=== PATIENT | male | born 1980 | race Caucasian/White ===

== ENCOUNTER → 2023-08-15 13:10 | Outpatient (REF) | payer OTHER, SELFPAY | LOC: HWRAD 13:10 | PROVIDERS: ATTENDING PHYSICIAN Physician Assistant | DX: R07.89 Other chest pain (principal); M54.50 Low back pain, unspecified; M54.6 Pain in thoracic spine | CPT/HCPCS: 71046; 72072; 72100 ==

== ENCOUNTER 2023-09-29 13:08 | Emergency (ER) | payer OTHER, SELFPAY ==
[2023-09-29 13:11] VITALS: BP 136/85
--- NOTE | 2023-09-29 15:36 | ED.GENMED ---
History of Present Illness
<Jj Brody PA-C - Last Filed: 09/30/23 09:57>
General
Chief Complaint: Prescription Refill
Source: patient
Time Seen by Provider: 09/29/23 14:59
History of Present Illness
History of Present Illness:
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
the streets). Patient states that he was hoping to be prescribed Suboxone in order to manage his addiction. He has no physical complaints at this time.
Past History
<Jj Brody PA-C - Last Filed: 09/30/23 09:57>
Past History
ED Past Medical History: Hypercholesterolemia and Psychiatric (Anxiety, depression, schizophrenia)
ED Past Surgical History: Appendectomy
Social History
Tobacco: Smoker
Alcohol: None
Drug: Marijuana and Other (Opiates)
Personal: Single
Living: alone
Employment: Employed
Family History
Family History: Other (reviewed and noncontributory)
Review of Systems
<Jj Brody PA-C - Last Filed: 09/30/23 09:57>
Review of Systems
All Other Systems: ROS reviewed and negative except as documented in HPI and ROS
Phy Exam
<Jj Brody PA-C - Last Filed: 09/30/23 09:57>
Physical Exam
Physical Exam:
GENERAL: Alert , in no apparent distress
EYE: conjunctiva clear
Head: Normocephalic atraumatic
NECK: Supple,
ENT: mmm.
LUNGS: no acute respiratory distress
NEUROLOGICAL: Alert and oriented
SKIN: Warm and dry, skin intact.
MUSCULOSKELETAL: well perfused.
PSYCH: Normal and appropriate interaction.
Scores
<Jj Brody PA-C - Last Filed: 09/30/23 09:57>
Heart Failure Risk
Heart Failure Risk Score: Not Applicable
Heart Score for Chest Pain Patients
STEMI patient?: Not applicable
Withdrawal Assessment of Alcohol
Withdrawal Assessment Completed?: Not applicable
Course
<Jj Brody PA-C - Last Filed: 09/30/23 09:57>
Vital Signs
Initial and Last Documented VS:
Initial Vital Signs
Temp Pulse Resp BP Pulse Ox
98.3 F 89 20 136/85 98
09/29/23 13:11 09/29/23 13:11 09/29/23 13:11 09/29/23 13:11 09/29/23 13:11
Last Documented Vital Signs
Temp Pulse Resp BP Pulse Ox
98.3 F 89 20 136/85 98
09/29/23 13:11 09/29/23 13:11 09/29/23 13:11 09/29/23 13:11 09/29/23 13:11
<Mika Gustafson PA-C - Last Filed: 09/29/23 18:12>
Vital Signs
Initial and Last Documented VS:
Initial Vital Signs
Temp Pulse Resp BP Pulse Ox
98.3 F 89 20 136/85 98
09/29/23 13:11 09/29/23 13:11 09/29/23 13:11 09/29/23 13:11 09/29/23 13:11
Last Documented Vital Signs
Temp Pulse Resp BP Pulse Ox
98.3 F 89 20 136/85 98
09/29/23 13:11 09/29/23 13:11 09/29/23 13:11 09/29/23 13:11 09/29/23 13:11
<Jj Brody PA-C - Last Filed: 09/30/23 09:57>
MDM/Problems Addressed
MDM/Problems Addressed:
42-year-old male presenting to the emergency department for evaluation due to methadone addiction. Patient has gone to inpatient at a separate facility for substance abuse this past January. He is requesting consultation with [facility]. Call was
placed and a provider from [facility] will come to the to evaluate patient and help with disposition planning
<Jj Brody PA-C - Last Filed: 09/30/23 09:57>
*Pulse Oximetry
Patient hypoxic: no
Data Reviewed
Review of Other/Old Records Reveals: Records
<Mika Gustafson PA-C - Last Filed: 09/29/23 18:12>
*Critical Care Note
Total Time (30-74mins, 75-104mins- exclusive of procedures): Not Applicable
<Mika Gustafson PA-C - Last Filed: 09/29/23 18:12>
Update Note
Update Note:
Assumed care of patient pending evaluation by drug and alcohol abuse specialist. Spoke with the specialist. They agree to start the patient on Subutex. He is going to be following up as an outpatient. A prescription for this was provided. No
indication for inpatient treatment at this time.
ED Attending Note
<Jj Brody PA-C - Last Filed: 09/30/23 09:57>
-
Portions of this chart may have been created with voice recognition software.� Occasional wrong word or��sound alike� substitutions may have occurred due to the inherent limitations of voice recognition software.
Discharge Plan
Departure
Patient Disposition: Home (Routine Discharge)
Date of Disposition: 09/29/23
Time of Disposition: 18:04
Patient with high blood pressure during this ER visit?: No
Discharge Problem:
Substance abuse
Instructions: Buprenorphine
Prescriptions:
New
buprenorphine HCl 8 mg tablet, sublingual
8 mg sublingual BID Qty: 14 0RF
Rx Instructions:
Initially take half a tablet twice a day x 1 day then take 1 full tablet twice a day following
No Action
duloxetine 60 MG capsule,delayed release(DR/EC)
60 mg PO DAILY 0RF
clonazepam 1 MG tablet
1 mg PO BIDPRN PRN (Reason: anxiety)
Patient Comments:
01/28/2023: last filled 12/31/22, 112 tabs for 28 days from [place]
haloperidol decanoate 100 mg/mL solution
100 mg IM Q3W
nicotine (polacrilex) 4 mg gum
4 mg PO Q4HPRN PRN (Reason: smoking )
trihexyphenidyl 2 mg tablet
4 mg PO DAILY
paliperidone 3 mg tablet extended release 24 hr
3 mg PO HS
Abilify Maintena 400 mg suspension,extended rel recon
400 mg IM Q4W
Referrals:
Federica Hendrix MD [Family Provider] -
Activity Restrictions/Additional Instructions:
Use prescribed medicine as directed. Start with 4 mg twice a day, then increase to 8 mg twice a day. Please follow-up as [facility].
Interventions
Interventions:
*General Assessment Last Done: 09/29/23 18:36
*Nursing Disposition Last Done: 09/29/23 18:36
Discharge Date and Time
Discharge Date/Time: 09/29/23 18:36
Print Language: BARBADIAN
== END 2023-09-29 18:36 | disposition home or self-care (01) ==
LOC: EMR 13:08
PROVIDERS: EMERGENCY PHYSICIAN Emergency Medicine; FAMILY PHYSICIAN Student in an Organized Health Care Education/Training Program
DX: F19.10 Other psychoactive substance abuse, uncomplicated (principal); E78.00 Pure hypercholesterolemia, unspecified; F41.8 Other specified anxiety disorders; F20.9 Schizophrenia, unspecified
CPT/HCPCS: 99282

== ENCOUNTER 2023-10-13 20:35 | Emergency (ER) | payer OTHER, SELFPAY ==
[2023-10-13 20:37] VITALS: BP 146/106
--- NOTE | 2023-10-13 22:25 | ED.GENMED ---
History of Present Illness
General
Chief Complaint: Throat Problem
Source: patient
Exam Limitations: none
Time Seen by Provider: 10/13/23 22:25
Nursing documentation reviewed up to this point in time: agreed with
History of Present Illness
History of Present Illness:
43-year-old male presents with the sensation that 'his Nic's apple is sinking '. He states that over the last 24 hours he noticed that his Nic's apple is lower in his throat. Denies any difficulty breathing or swallowing. Reports no pain.
Patient has a full villa, and the cartilage of his larynx is not readily visible
Past History
Past History
ED Past Medical History: Hypercholesterolemia and Psychiatric (Anxiety, depression, schizophrenia)
ED Past Surgical History: Appendectomy
Social History
Tobacco: Smoker
Alcohol: None
Drug: Marijuana and Other (Opiates)
Personal: Single
Living: alone
Employment: Employed
Family History
Family History: Other (reviewed and noncontributory)
Review of Systems
Review of Systems
Allergies reviewed?: Yes
All Other Systems: Not applicable
Constitutional: Reports no symptoms
EENT: Reports no symptoms
Respiratory: Reports no symptoms
Cardiac: Reports no symptoms
ABD/GI: Reports no symptoms
: Reports no symptoms
Musculoskeletal: Reports no symptoms
Skin: Reports no symptoms
Neurological: Reports no symptoms
Endocrine: Reports no symptoms
Hematologic/Lymphatic: Reports no symptoms
Psychiatric: Reports no symptoms
Phy Exam
General Physical Exam
General Presentation: well appearing and no apparent distress
General Skin: warm and dry
General Habitus: normal
General Mental: alert
General Hydration: appears well hydrated
ENT Exam
ENT Exam: EOMI, pharynx normal, neck supple and normocephalic
Eye Exam
Eye Exam: PERRL, cornea clear and conjunctiva normal
Cardiovascular Exam
Cardiovascular Exam: regular rate/rhythm, no edema, no murmur and normal peripheral pulses
Pulmonary Exam
Pulmonary Exam: lungs clear, no respiratory distress, no rales, no crackles, no rhonchi, no stridor, no wheezing and no cough
Gastrointestinal Exam
Gastrointestinal Exam: normal bowel sounds, non tender, soft, no organomegaly, no pulsatile mass and non distended
Neurological Exam
Neurological Exam: alert, oriented x3, no motor deficits and speech normal
Musculoskeletal Exam
Musculoskeletal Exam: full ROM and no edema
Skin Exam
Skin Exam: normal color, warm/dry, no rash and no petechia
Psychiatric Exam
Psychiatric Exam: normal mood/affect
Course
Orders/Labs/Results
Orders:
Orders
10/13/23 22:34
CR Soft Tissue Neck Urgent
Comment:
Reason For Exam: larynx pain
Vital Signs
Initial and Last Documented VS:
Initial Vital Signs
Temp Pulse Resp BP Pulse Ox
98.5 F 112 22 146/106 98
10/13/23 20:37 10/13/23 20:37 10/13/23 20:37 10/13/23 20:37 10/13/23 20:37
Last Documented Vital Signs
Temp Pulse Resp BP Pulse Ox
98.5 F 85 20 139/93 99
10/13/23 20:37 10/14/23 00:09 10/14/23 00:09 10/14/23 00:09 10/14/23 00:09
*Critical Care Note
Total Time (30-74mins, 75-104mins- exclusive of procedures): Not Applicable
ED Attending Note
-
Portions of this chart may have been created with voice recognition software.� Occasional wrong word or��sound alike� substitutions may have occurred due to the inherent limitations of voice recognition software.
Discharge Plan
Departure
Patient Disposition: Home (Routine Discharge)
Date of Disposition: 10/14/23
Time of Disposition: 00:00
Patient with high blood pressure during this ER visit?: No
Condition: Good
Discharge Problem:
Neck pain
Instructions: Neck Pain ED, BLOOD PRESSURE
Prescriptions:
No Action
duloxetine 60 MG capsule,delayed release(DR/EC)
60 mg PO DAILY 0RF
clonazepam 1 MG tablet
1 mg PO BIDPRN PRN (Reason: anxiety)
Patient Comments:
01/28/2023: last filled 12/31/22, 112 tabs for 28 days from [place]
haloperidol decanoate 100 mg/mL solution
100 mg IM Q3W
nicotine (polacrilex) 4 mg gum
4 mg PO Q4HPRN PRN (Reason: smoking )
trihexyphenidyl 2 mg tablet
4 mg PO DAILY
paliperidone 3 mg tablet extended release 24 hr
3 mg PO HS
Abilify Maintena 400 mg suspension,extended rel recon
400 mg IM Q4W
buprenorphine HCl 8 mg tablet, sublingual
8 mg sublingual BID Qty: 14 0RF
Rx Instructions:
Initially take half a tablet twice a day x 1 day then take 1 full tablet twice a day following
Referrals:
Reena Barrett PA-C [Family Provider] -
Activity Restrictions/Additional Instructions:
It was a pleasure meeting you and taking part in your care. We hope for your continued healing and wellness.
Please read discharge instructions in their entirety. However, they are for general education and may not describe your exact diagnosis at discharge. Information on your ER visit and medical conditions were discussed with you along with appropriate
follow up information...
If indicated, please take your medications as instructed and indicated on discharge paperwork.
Please schedule a follow up appointment as directed. Call to schedule an appointment
Please return to the emergency department with ANY change in, persisting, or worsening of symptoms. If any of your symptoms do not improve, or persist, or become more severe within 6-12 hours, please return to the emergency department for further
care.
Please return to the emergency department if you develop a headache, neck pain/stiffness, fever greater than 100.4F, chest pain, shortness of breath, persistent nausea, vomiting, slurred speech, difficulty walking, numbness/tingling, weakness, signs
of infection or any other symptoms that are worrisome to you.
If you have any questions or concerns please do not hesitate to call the Hospital at
Interventions
Interventions:
*Risk Screen - Suicide Last Done: 10/13/23 20:37
*General Assessment Last Done: 10/14/23 00:09
*Neglect/Abuse Screening Last Done: 10/13/23 20:37
ED- Fall Risk Assessment Last Done: 10/14/23 00:09
*ED COVID-19 Vaccine History Last Done: 10/14/23 00:09
*Nursing Disposition Last Done: 10/14/23 00:09
ED-EENT Assessment Last Done: 10/13/23 21:34
ED- Pulmonary Assessment Last Done: 10/13/23 21:32
Discharge Date and Time
Discharge Date/Time: 10/14/23 00:12
Print Language: SLOVAK
[2023-10-14 00:09] VITALS: BP 139/93
== END 2023-10-14 00:12 | disposition home or self-care (01) ==
LOC: EMR 20:35
PROVIDERS: EMERGENCY PHYSICIAN Student in an Organized Health Care Education/Training Program; FAMILY PHYSICIAN Physician Assistant
DX: M54.2 Cervicalgia (principal); E78.00 Pure hypercholesterolemia, unspecified; F41.8 Other specified anxiety disorders; F20.9 Schizophrenia, unspecified; F17.200 Nicotine dependence, unspecified, uncomplicated
CPT/HCPCS: 99283; 70360

== ENCOUNTER 2023-11-16 17:37 | Emergency (ER) | payer OTHER, SELFPAY ==
[2023-11-16 17:39] VITALS: BP 161/101
[2023-11-16] MEDS: SUBUTEX 8 MG SL (18:59)
--- NOTE | 2023-11-16 22:58 | ED.GENMED ---
History of Present Illness
General
Chief Complaint: Prescription Refill
Source: patient
Exam Limitations: none
Time Seen by Provider: 11/16/23 18:17
Nursing documentation reviewed up to this point in time: agreed with
History of Present Illness
History of Present Illness:
Patient states he took his last Suboxone pill this AM. Does not recall when his next provider appointment is. States he needs his PM dose for today, will call provider in AM. No other complaints.
Past History
Past History
ED Past Medical History: Hypercholesterolemia and Psychiatric (Anxiety, depression, schizophrenia)
ED Past Surgical History: Appendectomy
Social History
Tobacco: Smoker
Alcohol: None
Drug: Marijuana and Other (Opiates)
Personal: Single
Living: alone
Employment: Employed
Family History
Family History: Other (reviewed and noncontributory)
Review of Systems
Review of Systems
Allergies reviewed?: Yes
All Other Systems: ROS reviewed and negative except as documented in HPI and ROS
Constitutional: Reports no symptoms
EENT: Reports no symptoms
Respiratory: Reports no symptoms
Cardiac: Reports no symptoms
ABD/GI: Reports no symptoms
Musculoskeletal: Reports no symptoms
Skin: Reports no symptoms
Neurological: Reports no symptoms
Psychiatric: Reports no symptoms
Phy Exam
General Physical Exam
General Presentation: well appearing and no apparent distress
General age: appears stated age
General Skin: warm and dry
General Habitus: normal
Musculoskeletal Exam
Musculoskeletal Exam: full ROM and neuro vasc intact
Skin Exam
Skin Exam: normal color, warm/dry and no rash
Psychiatric Exam
Psychiatric Exam: normal mood/affect
Course
Orders/Labs/Results
Orders:
Orders
11/16/23 18:34
Buprenorphine [Subutex] 8 mg SL NOW STA
Vital Signs
Initial and Last Documented VS:
Initial Vital Signs
Temp Pulse Resp BP Pulse Ox
98.8 F 104 20 161/101 98
11/16/23 17:39 11/16/23 17:39 11/16/23 17:39 11/16/23 17:39 11/16/23 17:39
Last Documented Vital Signs
Temp Pulse Resp BP Pulse Ox
98.8 F 104 20 161/101 98
11/16/23 17:39 11/16/23 17:39 11/16/23 17:39 11/16/23 17:39 11/16/23 17:39
*Critical Care Note
Total Time (30-74mins, 75-104mins- exclusive of procedures): Not Applicable
Update Note
Update Note:
PM dose given in ED. He is discharged home and will follow up with his prescribing provider in the AM
ED Attending Note
-
Portions of this chart may have been created with voice recognition software.� Occasional wrong word or��sound alike� substitutions may have occurred due to the inherent limitations of voice recognition software.
Discharge Plan
Departure
Patient Disposition: Home (Routine Discharge)
Date of Disposition: 11/16/23
Time of Disposition: 18:35
Patient with high blood pressure during this ER visit?: No
Condition: Good
Covid-19: Not Applicable
Discharge Problem:
Encounter for medication refill
Instructions: Buprenorphine Discharge Instructions
Prescriptions:
No Action
duloxetine 60 MG capsule,delayed release(DR/EC)
60 mg PO DAILY 0RF
clonazepam 1 MG tablet
1 mg PO BIDPRN PRN (Reason: anxiety)
Patient Comments:
01/28/2023: last filled 12/31/22, 112 tabs for 28 days from [place]
haloperidol decanoate 100 mg/mL solution
100 mg IM Q3W
nicotine (polacrilex) 4 mg gum
4 mg PO Q4HPRN PRN (Reason: smoking )
trihexyphenidyl 2 mg tablet
4 mg PO DAILY
paliperidone 3 mg tablet extended release 24 hr
3 mg PO HS
Abilify Maintena 400 mg suspension,extended rel recon
400 mg IM Q4W
buprenorphine HCl 8 mg tablet, sublingual
8 mg sublingual BID Qty: 14 0RF
Rx Instructions:
Initially take half a tablet twice a day x 1 day then take 1 full tablet twice a day following
Referrals:
Federica Hendrix MD [Family Provider] -
Activity Restrictions/Additional Instructions:
Follow up with your Suboxone provider in the AM
Interventions
Interventions:
*Risk Screen - Suicide Last Done: 11/16/23 19:03
*Neglect/Abuse Screening Last Done: 11/16/23 19:03
*Nursing Disposition Last Done: 11/16/23 19:04
Discharge Date and Time
Discharge Date/Time: 11/16/23 19:04
Print Language: UPPER SORBI[place]
== END 2023-11-16 19:04 | disposition home or self-care (01) ==
LOC: EMR 17:37
PROVIDERS: EMERGENCY PHYSICIAN Emergency Medicine; FAMILY PHYSICIAN Student in an Organized Health Care Education/Training Program
DX: Z76.0 Encounter for issue of repeat prescription (principal); E78.00 Pure hypercholesterolemia, unspecified; F20.9 Schizophrenia, unspecified; F32.A Depression, unspecified; F41.9 Anxiety disorder, unspecified; F17.200 Nicotine dependence, unspecified, uncomplicated
CPT/HCPCS: 99281

== ENCOUNTER 2023-11-17 13:47 | Emergency (ER) | payer OTHER, SELFPAY ==
--- NOTE | 2023-11-17 14:17 | ED.GENMED ---
History of Present Illness
General
Chief Complaint: Prescription Refill
Source: patient
Exam Limitations: none
Time Seen by Provider: 11/17/23 14:15
Nursing documentation reviewed up to this point in time: agreed with
History of Present Illness
History of Present Illness:
43 yo male missed his Suboxone appointment 2 days ago, was here yesterday and received 8 mg SL, is here today requesting another dose as he has appointment with his doctor tomorrow.
Past History
Past History
ED Past Medical History: Hypercholesterolemia and Psychiatric (Anxiety, depression, schizophrenia)
ED Past Surgical History: Appendectomy
Social History
Tobacco: Smoker
Alcohol: None
Drug: Marijuana and Other (Opiates)
Personal: Single
Living: alone
Employment: Employed
Family History
Family History: Other (reviewed and noncontributory)
Review of Systems
Review of Systems
Allergies reviewed?: Yes
All Other Systems: ROS reviewed and negative except as documented in HPI and ROS
Constitutional: Denies fever
Respiratory: Denies trouble breathing
Cardiac: Denies chest pain
ABD/GI: Denies abdominal pain, nausea, vomiting or diarrhea
Musculoskeletal: Reports no symptoms
Skin: Reports no symptoms
Neurological: Reports no symptoms
Phy Exam
Physical Exam
Physical Exam:
GENERAL: No acute distress. A&Ox3.
CONSTITUTIONAL: Afebrile.
EYES: clear, conjunctivae normal
ENMT: moist mucus membranes, Pharynx nl
RESPIRATORY: Regular respirations, nonlabored, lungs clear.
CARDIOVASCULAR: Regular rate and rhythm, no murmurs, no rubs.
GI: Soft, nontender
MUSCULOSKELETAL: Moves with ease. Well perfused.
SKIN: Warm, dry, pink
PSYCH: Normal mood and affect. Well kept, interactive and appropriate
NEUROLOGIC: Awake, alert and oriented. No focal neurological deficits
Course
Orders/Labs/Results
Orders:
Orders
11/17/23 14:16
Buprenorphine [Subutex] 8 mg SL NOW ONE
Vital Signs
Initial and Last Documented VS:
Initial Vital Signs
Temp Pulse Resp Pulse Ox
97.8 F 76 18 97
11/17/23 13:49 11/17/23 13:49 11/17/23 13:49 11/17/23 13:49
Last Documented Vital Signs
Temp Pulse Resp BP Pulse Ox
97.8 F 78 18 140/95 97
11/17/23 13:49 11/17/23 14:37 11/17/23 14:37 11/17/23 14:37 11/17/23 13:49
MDM/Problems Addressed
MDM/Problems Addressed:
43 yo male missed his Suboxone appointment 2 days ago, was here yesterday and received 8 mg SL, is here today requesting another dose as he has appointment with his doctor tomorrow.
Dose given.
*Critical Care Note
Total Time (30-74mins, 75-104mins- exclusive of procedures): Not Applicable
ED Attending Note
-
Portions of this chart may have been created with voice recognition software.� Occasional wrong word or��sound alike� substitutions may have occurred due to the inherent limitations of voice recognition software.
Discharge Plan
Departure
Patient Disposition: Home (Routine Discharge)
Date of Disposition: 11/17/23
Time of Disposition: 14:24
Patient with high blood pressure during this ER visit?: No
Condition: Good
Discharge Problem:
Medication administered
Prescriptions:
No Action
duloxetine 60 MG capsule,delayed release(DR/EC)
60 mg PO DAILY 0RF
clonazepam 1 MG tablet
1 mg PO BIDPRN PRN (Reason: anxiety)
Patient Comments:
01/28/2023: last filled 12/31/22, 112 tabs for 28 days from [place]
haloperidol decanoate 100 mg/mL solution
100 mg IM Q3W
nicotine (polacrilex) 4 mg gum
4 mg PO Q4HPRN PRN (Reason: smoking )
trihexyphenidyl 2 mg tablet
4 mg PO DAILY
paliperidone 3 mg tablet extended release 24 hr
3 mg PO HS
Abilify Maintena 400 mg suspension,extended rel recon
400 mg IM Q4W
buprenorphine HCl 8 mg tablet, sublingual
8 mg sublingual BID Qty: 14 0RF
Rx Instructions:
Initially take half a tablet twice a day x 1 day then take 1 full tablet twice a day following
Activity Restrictions/Additional Instructions:
Keep your appointment with your doctor tomorrow
Interventions
Interventions:
*Risk Screen - Suicide Last Done: 11/17/23 13:49
*General Assessment Last Done: 11/17/23 13:49
*Neglect/Abuse Screening Last Done: 11/17/23 13:49
ED- Fall Risk Assessment Last Done: 11/17/23 14:38
*Nursing Disposition Last Done: 11/17/23 14:38
Discharge Date and Time
Discharge Date/Time: 11/17/23 14:39
Print Language: AZERI
[2023-11-17] MEDS: SUBUTEX 8 MG SL (14:23)
[2023-11-17 14:37] VITALS: BP 140/95
== END 2023-11-17 14:39 | disposition home or self-care (01) ==
LOC: EMR 13:47
PROVIDERS: EMERGENCY PHYSICIAN Emergency Medicine; FAMILY PHYSICIAN Physician Assistant
DX: Z76.0 Encounter for issue of repeat prescription (principal); F32.A Depression, unspecified; F41.9 Anxiety disorder, unspecified; F20.9 Schizophrenia, unspecified; E78.00 Pure hypercholesterolemia, unspecified; F31.9 Bipolar disorder, unspecified; F17.200 Nicotine dependence, unspecified, uncomplicated; Z91.51 Personal history of suicidal behavior; Z87.820 Personal history of traumatic brain injury
CPT/HCPCS: 99281

== ENCOUNTER 2024-04-21 17:25 | Emergency (ER) | payer OTHER, SELFPAY ==
[2024-04-21 17:36] VITALS: BP 136/82
[2024-04-21 17:50] VITALS: BMI 28.0
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
[2024-04-21] MEDS: KLONOPIN 1 MG PO (19:31)
[2024-04-21] MEDS: SUBUTEX 8 MG SL (20:07)
[2024-04-22 00:30] VITALS: BP 128/32
[2024-04-22] MEDS: NICODERM TRANSDERMAL 21 MG TRANSDERM (00:35)
[2024-04-22] MEDS: NICORETTE 2 MG PO (00:35)
[2024-04-22 00:46] LABS: % Basophils 0.7 % (0-2); % Eosinophils 2.1 % (0-6); % Immature Granulocytes 1.4 % (0-0.5); % Lymphocytes 28.9 % (20.5-51.1); % Neutrophils 57.9 % (42.2-75.2); Absolute Basophils 0.1 10^3/uL (0-0.2); Absolute Eosinophils 0.2 10^3/uL (0-0.7); Absolute Immature Granulocytes 0.1 10^3/uL (0-0.05); Absolute Monocytes 0.6 10^3/uL (0.1-0.6); Hematocrit 43.8 % (39.0-52.0); Mean Corp Hgb Conc. 34.2 g/dL (33.0-37.0); Mean Corpuscular Hgb 29.5 pg (27.0-31.0); Mean Corpuscular Volume 86.1 fL (80.0-94.0); Mean Platelet Volume 9.8 fL (7.4-10.4); Nucleated Red Blood Cells % 0 % (-); Platelet Count 218 10^3/uL (130-400); Red Blood Cell Count 5.09 10^6/uL (4.70-6.10); Red Cell Dist. Width 12.5 % (11.5-14.5)
[2024-04-22 00:48] LABS: ALT (SGPT) 30 U/L (0-50); AST (SGOT) 20 U/L (17-59); Albumin 4.6 g/dl (3.5-5.0); Alkaline Phosphatase 77 U/L (38-126); Blood Urea Nitrogen 16 mg/dl (9-20); Calcium 9.6 mg/dl (8.4-10.2); Carbon Dioxide 32 mmol/L (22-30); Chloride 101 mmol/L (98-107); Estimated Creatinine Clearance 104 ml/min; Glucose 138 mg/dl (70-99); Potassium 4.6 mmol/L (3.5-5.1); Sodium 141 mmol/L (135-145); Total Bilirubin 0.9 mg/dl (0.2-1.3); eGFR > 60.00
[2024-04-22 00:53] LABS: Amphetamines Negative (Negative); Barbiturates Negative (Negative); Benzodiazepines Positive (Negative); Buprenorphine Positive (Negative); Cocaine Negative (Negative); Marijuana Positive (Negative); Methadone Positive (Negative); Methamphetamines Negative (Negative); Opiates Negative (Negative); Phencyclidine Negative (Negative); Tricyclic Antidepressants Negative (Negative)
[2024-04-22 01:01] LABS: Fentanyl, Urine Negative (Negative)
[2024-04-22 07:02] VITALS: BP 130/90
[2024-04-22] MEDS: KLONOPIN 1 MG PO (09:23)
== END 2024-04-22 11:40 ==
LOC: EMR 17:25
PROVIDERS: Clinical Nurse Specialist Family Health; EMERGENCY PHYSICIAN Emergency Medicine
DX: R45.851 Suicidal ideations (principal); E78.00 Pure hypercholesterolemia, unspecified; F41.9 Anxiety disorder, unspecified; F20.9 Schizophrenia, unspecified; F17.200 Nicotine dependence, unspecified, uncomplicated; Z65.3 Problems related to other legal circumstances; Z90.49 Acquired absence of other specified parts of digestive tract; Z91.148 Patient's other noncompliance with medication regimen for other reason; Z87.820 Personal history of traumatic brain injury
CPT/HCPCS: 99282; 80053; 80306; 80307; 85025

== ENCOUNTER 2024-05-04 19:52 | Emergency (ER) | payer OTHER, SELFPAY ==
[2024-05-04 19:53] VITALS: BP 144/100
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
[2024-05-04 23:55] LABS: % Basophils 0.9 % (0-2); % Eosinophils 1.3 % (0-6); % Immature Granulocytes 0.4 % (0-0.5); % Lymphocytes 25.2 % (20.5-51.1); % Monocytes 7.4 % (1.7-9.3); % Neutrophils 64.8 % (42.2-75.2); Absolute Basophils 0.1 10^3/uL (0-0.2); Absolute Eosinophils 0.1 10^3/uL (0-0.7); Absolute Lymphocytes 2.1 10^3/uL (1.2-3.4); Absolute Monocytes 0.6 10^3/uL (0.1-0.6); Absolute Neutrophils 5.3 10^3/uL (1.4-6.5); Hematocrit 43.3 % (39.0-52.0); Hemoglobin 15.2 g/dL (13.0-18.0); Mean Corp Hgb Conc. 35.1 g/dL (33.0-37.0); Mean Corpuscular Hgb 29.3 pg (27.0-31.0); Mean Corpuscular Volume 83.4 fL (80.0-94.0); Mean Platelet Volume 9.4 fL (7.4-10.4); Nucleated Red Blood Cells % 0 % (-); Platelet Count 282 10^3/uL (130-400); Red Blood Cell Count 5.19 10^6/uL (4.70-6.10); Red Cell Dist. Width 12.4 % (11.5-14.5); White Blood Cell Count 8.2 10^3/uL (4.8-10.8)
[2024-05-05 00:04] LABS: ALT (SGPT) 27 U/L (0-50); AST (SGOT) 24 U/L (17-59); Acetaminophen < 10 ug/ml (10-30); Albumin 4.9 g/dl (3.5-5.0); Alkaline Phosphatase 82 U/L (38-126); Blood Urea Nitrogen 21 mg/dl (9-20); Calcium 9.5 mg/dl (8.4-10.2); Carbon Dioxide 29 mmol/L (22-30); Chloride 100 mmol/L (98-107); Glucose 105 mg/dl (70-99); Potassium 4.4 mmol/L (3.5-5.1); Salicylate < 1.0 mg/dl (2.0-20.0); Sodium 138 mmol/L (135-145); Total Bilirubin 0.8 mg/dl (0.2-1.3); Total Protein 7.4 g/dl (6.3-8.2); eGFR > 60.00
[2024-05-05 00:09] LABS: Alcohol < 10 mg/dl
[2024-05-05] MEDS: NICORETTE 4 MG PO (00:37)
== END 2024-05-05 01:40 ==
LOC: EMR 19:52
PROVIDERS: EMERGENCY PHYSICIAN Emergency Medicine
DX: R45.850 Homicidal ideations (principal); F20.9 Schizophrenia, unspecified; R45.1 Restlessness and agitation; R45.6 Violent behavior; F41.9 Anxiety disorder, unspecified; R03.0 Elevated blood-pressure reading, without diagnosis of hypertension; F32.A Depression, unspecified; E78.00 Pure hypercholesterolemia, unspecified; F31.9 Bipolar disorder, unspecified; F17.200 Nicotine dependence, unspecified, uncomplicated; Z91.51 Personal history of suicidal behavior; Z87.820 Personal history of traumatic brain injury
CPT/HCPCS: 99285; 80053; 80143; 80179; 82077; 85025

== ENCOUNTER 2024-11-28 12:32 | Emergency (ER) | payer OTHER, SELFPAY ==
[2024-11-28 12:34] VITALS: BP 141/89
--- NOTE | 2024-11-28 13:16 | ED.GENMED ---
History of Present Illness
General
Chief Complaint: Prescription Refill
Source: patient
Time Seen by Provider: 11/28/24 12:58
History of Present Illness
History of Present Illness:
44-year-old male with extensive psychiatric past medical history, on Suboxone, presents to the ER stating that he lost his car keys in [place], unable to get into his car where he currently has his Suboxone and has been unable to take his Suboxone
since yesterday morning. Patient is without any concerns at this time. States he will be contacting his doctor tomorrow for a refill. Patient states he is unsure how he is going to get back into his car. I did suggest to the patient calling a
lot to try and help.
Past History
Past History
ED Past Medical History: Hypercholesterolemia, Psychiatric (Anxiety, depression, schizophrenia, Bipolar) and Other (TBI, Lyme's disease)
ED Past Surgical History: Appendectomy
Social History
Tobacco: Smoker
Alcohol: None
Drug: Marijuana and Other (Opiates)
Personal: Single
Living: alone
Employment: Employed
Family History
Family History: Other (reviewed and noncontributory)
Review of Systems
Review of Systems
All Other Systems: ROS reviewed and negative except as documented in HPI and ROS
Phy Exam
Physical Exam
Physical Exam:
GENERAL: Alert , in no apparent distress
EYE: conjunctiva clear
Head: Normocephalic atraumatic
NECK: Supple,
ENT: mmm.
LUNGS: no acute respiratory distress
NEUROLOGICAL: Alert and oriented
SKIN: Warm and dry, skin intact.
MUSCULOSKELETAL: well perfused.
PSYCH: Normal and appropriate interaction.
Scores
Heart Failure Risk
Heart Failure Risk Score: Not Applicable
Heart Score for Chest Pain Patients
STEMI patient?: Not applicable
Withdrawal Assessment of Alcohol
Withdrawal Assessment Completed?: Not applicable
Course
Orders/Labs/Results
Orders:
Orders
11/28/24 13:15
Buprenorphine [Subutex] 8 mg SL NOW STA
Vital Signs
Initial and Last Documented VS:
Initial Vital Signs
Temp Pulse Resp BP Pulse Ox
98.5 F 87 17 141/89 99
11/28/24 12:34 11/28/24 12:34 11/28/24 12:34 11/28/24 12:34 11/28/24 12:34
Last Documented Vital Signs
Temp Pulse Resp BP Pulse Ox
98.5 F 87 17 141/89 99
11/28/24 12:34 11/28/24 12:34 11/28/24 12:34 11/28/24 12:34 11/28/24 13:17
MDM/Problems Addressed
MDM/Problems Addressed:
44-year-old male presenting to the ER for a dose of Subutex as he states it is currently locked in his car and he has no way of getting into his car. Last dose was yesterday morning. Will dose patient here, informed patient that I cannot provide
him with a refill of his prescription and that he would need to follow-up with his prescriptive provider of this medication. Patient expressed understanding. I also encouraged the patient to try and contact a natural gas basis trader to try and get into his car
as he will need this medication going forward.
*Pulse Oximetry
SaO2: 99
Oxygen Mode of Delivery: Room air
Patient hypoxic: no
*Critical Care Note
Total Time (30-74mins, 75-104mins- exclusive of procedures): Not Applicable
ED Attending Note
-
Portions of this chart may have been created with voice recognition software.� Occasional wrong word or��sound alike� substitutions may have occurred due to the inherent limitations of voice recognition software.
Discharge Plan
Departure
Patient Disposition: Home (Routine Discharge)
Date of Disposition: 11/28/24
Time of Disposition: 13:16
Patient with high blood pressure during this ER visit?: No
Discharge Problem:
Medication administered
Prescriptions:
No Action
clonazepam 1 MG tablet
1 mg PO BIDPRN PRN (Reason: anxiety)
Patient Comments:
01/28/2023: last filled 12/31/22, 112 tabs for 28 days from [place]
nicotine (polacrilex) 4 mg gum
4 mg PO Q4HPRN PRN (Reason: smoking )
buprenorphine HCl 8 mg tablet, sublingual
8 mg sublingual BID Qty: 14 0RF
Rx Instructions:
Initially take half a tablet twice a day x 1 day then take 1 full tablet twice a day following
Interventions
Interventions:
*Risk Screen - Suicide Last Done: 11/28/24 12:35
*General Assessment Last Done: 11/28/24 12:35
*Neglect/Abuse Screening Last Done: 11/28/24 12:35
*ED- Fall Risk Assessment Last Done: 11/28/24 13:31
*ED COVID-19 Vaccine History Last Done: 11/28/24 12:35
*Nursing Disposition Last Done: 11/28/24 13:31
Discharge Date and Time
Discharge Date/Time: 11/28/24 13:31
Print Language: ALBANIAN
[2024-11-28] MEDS: SUBUTEX 8 MG SL (13:26)
== END 2024-11-28 13:31 | disposition home or self-care (01) ==
LOC: EMR 12:32
PROVIDERS: EMERGENCY PHYSICIAN Emergency Medicine; FAMILY PHYSICIAN Student in an Organized Health Care Education/Training Program
DX: Z76.0 Encounter for issue of repeat prescription (principal); E78.00 Pure hypercholesterolemia, unspecified; F41.9 Anxiety disorder, unspecified; F20.9 Schizophrenia, unspecified; F32.A Depression, unspecified; F17.200 Nicotine dependence, unspecified, uncomplicated; Z87.820 Personal history of traumatic brain injury
CPT/HCPCS: 99281

== ENCOUNTER → 2024-12-27 13:27 | Outpatient (REF) | payer OTHER, SELFPAY | LOC: HWCARD 13:27 | PROVIDERS: ATTENDING PHYSICIAN Registered Nurse; FAMILY PHYSICIAN Student in an Organized Health Care Education/Training Program | DX: R94.31 Abnormal electrocardiogram [ECG] [EKG] (principal) | CPT/HCPCS: 93005 ==